=== PATIENT | male | born 1950 | race Caucasian/White ===

== ENCOUNTER 2020-03-13 10:45 | Emergency (ER) | payer OTHER ==
[~2020-03-13] VITALS: Ht 185.4 cm; Wt 142.9 kg
[2020-03-13] MEDS ORDERED: ASA81BEC PO (10:50)
[2020-03-13] MEDS ORDERED: NORVASC 2.5 MG2.5 M1 PO (10:51)
[2020-03-13] MEDS ORDERED: PROTONIX40 M2 PO (10:52)
[2020-03-13] MEDS ORDERED: MELOXICAM7.5 MG PO (10:52)
[2020-03-13] MEDS ORDERED: HYDROCHLOROTHIA25 M2 PO (10:53)
[2020-03-13] MEDS ORDERED: NORCO 5-325 TA1 EAC2 PO (10:55)
[2020-03-13] MEDS ORDERED: PRAVACHOL 20 MG20 M1 PO (10:56)
[2020-03-13] MEDS ORDERED: ATENOLOL 50MG T50 M1 PO (10:56)
[2020-03-13] MEDS ORDERED: SYSTANE 0.3-0.1 EACH EA. EYE (10:57)
[2020-03-13] MEDS ORDERED: GLUCOSAMINE H1500 MG PO (10:58)
[2020-03-13] MEDS ORDERED: SUPER THERAVIT1 EACH PO (11:00)
[2020-03-13] MEDS ORDERED: COD LIVER OIL1 EAC4 PO (11:01)
[2020-03-13] MEDS ORDERED: POTASSIUM (11:02)
[2020-03-13] MEDS ORDERED: MAGNESIUM250 M1 PO (11:04)
[2020-03-13] MEDS ORDERED: GALZIN50 MG PO (11:05)
[2020-03-13] MEDS ORDERED: COQ1050 MG PO (11:07)
[2020-03-13] MEDS ORDERED: HORNY GOAT WEED (11:07)
[2020-03-13 11:42] LABS: HEMOGLOBIN 13.6 gm/dL (14.0-18.0); MCH 32.3 pg (26.0-34.0); PLATELET COUNT* 187 thou/uL (150-400); WBC 8.9 thou/uL (4.0-11.0)
[2020-03-13 11:43] LABS: HEMATOCRIT 40.1 % (42.0-52.0); MCHC 33.8 g/dL (28.0-37.0); MCV 95.5 fL (80.0-100.0); MPV 8.8 fl. (7.2-11.1); NUCLEATED RBCS 0 /100WBC; PROTIME 10.4 Seconds (9.20-11.50); RDW-CV 14.5 % (10.5-14.5)
[2020-03-13 11:45] LABS: CALCIUM 9.2 mg/dL (8.5-10.1); CREATININE 1.2 mg/dL (0.6-1.3); POTASSIUM 3.7 mmol/L (3.5-5.1)
[2020-03-13 11:59] LABS: ALBUMIN 4.1 g/dL (3.4-5.0); TOTAL BILIRUBIN 0.4 mg/dL (<0.1-1.0); TOTAL PROTEIN 8.2 g/dL (6.4-8.2)
[2020-03-13 12:27] LABS: ABSOLUTE LYMPHOCYTES 2.6 thou/uL (0.8-5.3); ABSOLUTE MONOCYTES 0.3 thou/uL (0.0-1.2); ABSOLUTE NEUTROPHILS 6.1 thou/uL (1.6-8.1); PLATELET ESTIMATE ADEQUATE
[2020-03-13 14:50] VITALS: BP 112/77
--- NOTE | 2020-03-14 17:39 | EKG ---
[place] [address] ELECTROCARDIOGRAM REPORT Name: TRISTAN RIVAS Room: [facility]#: [id number] Admission: 03/13/20 Attend Phys: Discharge: 03/13/20 Date of : 54 Date of Service: 03/13/20 1049 Report #: [id number] THIS REPORT FOR: //name// [facility] ED Test Date: 2020-03-13 Test Time: 10:49:18 Pat Name: TRISTAN RIVAS Department: Room: Gender: [employer]: CCD : [id number] Requested By: Chavez Calvillo Order Number: [id number] MD: Bo Sears Measurements Intervals [place] Rate: 59 P: 46 [place]: 183 QRS: -29 QRSD: 111 T: 35 QT: 430 QTc: 426 Interpretive Statements Sinus rhythm Abnormal R-wave progression, early transition Left ventricular hypertrophy, by voltage No previous ECG available for comparison Electronically Signed On 03-14-2020 17:39:36 CDT by Bo Sears [email or web address] <ELECTRONICALLY SIGNED> By: Bo Sears MD, [facility] 03/14/20 1739 1049 1049 Bo Sears MD, [facility] /EPI
== END 2020-03-13 14:50 | disposition home or self-care (01) ==
LOC: M.ERS 10:45
PROVIDERS: Family Medicine
DX: R07.89 Other chest pain (principal); M25.512 Pain in left shoulder; Z20.828 Contact with and (suspected) exposure to other viral communicable diseases; I10 Essential (primary) hypertension; K21.9 Gastro-esophageal reflux disease without esophagitis